=== PATIENT | male | born 1990 | race African-American/Black ===

== ENCOUNTER 2017-03-06 21:15 | Emergency (ER) | payer OTHER ==
[~2017-03-06] VITALS: Ht 172.7 cm; Wt 80.7 kg
[~2017-03-06 21:15] MED LIST: ADVAIR 100-501 EACH INH; AMRIX15 MG PO; IBUPROFEN 800800 M1 PO; NORCO 5-325 TA1 EACH PO; PROVENTIL17 G1 IH; VYVANSE50 MG PO; XOPENEX 0.63 MG/3 M1 IH
[2017-03-06] MEDS ORDERED: AMRIX15 MG (21:38)
[2017-03-06] MEDS ORDERED: IBUPROFEN 600600 M1 PO (22:44)
[2017-03-06] MEDS ORDERED: LIDODERM 5%1 PATC1 TRANSDERM (22:44)
[2017-03-06] MEDS ORDERED: ULTRAM 50MG TAB50 MG PO (22:44)
[2017-03-06 23:49] VITALS: BP 116/76
== END 2017-03-06 23:50 | disposition home or self-care (01) ==
LOC: ER 21:15
DX: S52.615A Nondisplaced fracture of left ulna styloid process, initial encounter for closed fracture (principal); S20.211A Contusion of right front wall of thorax, initial encounter; J45.909 Unspecified asthma, uncomplicated; F17.228 Nicotine dependence, chewing tobacco, with other nicotine-induced disorders; Z88.0 Allergy status to penicillin